=== PATIENT | male | born 1935 | race Two or more races ===

== ENCOUNTER 2017-04-27 15:16 | Emergency (ER) | payer MEDICARE, OTHER ==
[~2017-04-27] VITALS: Ht 172.7 cm; Wt 74.8 kg
--- NOTE | 2017-04-27 15:16 | NUR ---
BBRA 102 FROM [facility] [employer]; FULL ARREST, EMS ADMIN 2MG NARCA IN, EPI 1MG IV. PT INTUBATED. PER EMS PT DOWN FOR 30 MINS. PT PLACED ON MONITOR. DR STERLING AT BEDSIDE. RT AT BEDSIDE. CODE INITIATED.
[2017-04-27] MEDS ORDERED: EPINEPHRINE (1:10,000) SYRINGE 1 MG/10 ML DISP.SYRIN ONE ×3 (15:32→17:40)
--- NOTE | 2017-04-27 15:45 | NUR ---
FAMILY AT BEDSIDE
--- NOTE | 2017-04-27 16:09 | NUR ---
CALLED DR PACHECO PHILLIPS'[facility]SWERING [facility]. WAS PAGED.
--- NOTE | 2017-04-27 16:11 | NUR ---
SPOKE WITH АЛЕКСАНДР FROM DR SELLERS [facility], WAS PAGED. [phone]
[2017-04-27 17:02] VITALS: BP 0/0
--- NOTE | 2017-04-27 17:10 | NUR ---
PT TO [facility] AT THIS TIME
[2017-04-27] MEDS ORDERED: SODIUM BICARBONATE SYR 50 MEQ/50 ML DISP.SYRIN ONE (17:40)
== END 2017-04-27 17:03 ==
LOC: ER 15:18
DX: I46.9 Cardiac arrest, cause unspecified (principal); I10 Essential (primary) hypertension; K21.9 Gastro-esophageal reflux disease without esophagitis; N40.0 Benign prostatic hyperplasia without lower urinary tract symptoms; Z46.82 Encounter for fitting and adjustment of non-vascular catheter
CPT/HCPCS: 31500; 92950; 99291; J0171 ×3; J3490